=== PATIENT | female | born 1960 | race Caucasian/White ===

== ENCOUNTER 2021-06-23 17:12 | Emergency (ER) | payer OTHER ==
[~2021-06-23] VITALS: Ht 165.1 cm; Wt 118.4 kg
[2021-06-23 17:26] VITALS: BP_SYST 186
[2021-06-23] MEDS ORDERED: LABETALOL 100 MG/ 20ML VIAL IVP ONE ×2 (17:30→18:00)
--- NOTE | 2021-06-23 17:30 | NUR ---
RECEIVED PATIENT TO BED #7 FROM HOME WITH CC OF CHEST PRESSURE, NON-RADIATING, NONPROVOKED, HEADACHE ASSOCIATED THAT HAS BEEN X2 WEEKS. PT IS STABLE, BLOOD PRESSURE HIGH, TO BE FURTHER ASSESSED BY ED MD.
--- NOTE | 2021-06-23 17:40 | NUR ---
Dr. Lam at bedside examining pt.
[2021-06-23 18:15] LABS: BASOPHILS # (AUTO) 0.1 K/uL (0.0-0.2); BASOPHILS % (AUTO) 0.9 % (0.0-2.0); EOSINOPHILS # (AUTO) 0.2 K/uL (0.0-0.4); EOSINOPHILS % (AUTO) 2.9 % (0.0-4.0); HEMATOCRIT 43.7 % (36-48); LYMPHOCYTES # (AUTO) 2.2 K/uL (1.0-5.5); LYMPHOCYTES % (AUTO) 31.9 % (20.5-51.5); MEAN CORPUSCULAR HEMOGLOBIN 31 pg (27-31); MEAN CORPUSCULAR HGB CONC 34 % (32-36); MEAN CORPUSCULAR VOLUME 89 fL (79.0-98.0); MONOCYTES # (AUTO) 0.5 K/uL (0.0-1.0); MONOCYTES % (AUTO) 7.1 % (1.7-9.3); NEUTROPHILS # (AUTO) 3.9 K/uL (1.8-7.7); NEUTROPHILS % (AUTO) 57.2 % (40.0-70.0); PLATELET COUNT (AUTO) 197 K/uL (130-430); RED CELL DISTRIBUTION WIDTH 14.1 % (9.0-15.0); WHITE BLOOD COUNT (AUTO) 6.9 K/uL (4.8-10.8)
[2021-06-23 18:22] LABS: ANION GAP 12 (5-15); CALCIUM 9.2 mg/dL (8.4-11.0); CHLORIDE 103 mmol/L (98-107); CREATININE 0.73 mg/dL (0.55-1.30); GLUCOSE 87 mg/dL (70-99); POTASSIUM 3.4 mmol/L (3.5-5.1); SODIUM SERUM 139 mmol/L (136-145); UREA NITROGEN, BLOOD 12 mg/dL (8-21)
[2021-06-23 18:30] LABS: ALANINE AMINOTRANSFERASE 57 U/L (12-78); ALBUMIN 3.6 g/dL (3.4-4.8); ASPARTATE AMINOTRANSFERASE 38 U/L (10-37); TOTAL BILIRUBIN 0.2 mg/dL (0.0-1.0)
[2021-06-23 18:31] LABS: GFR AFRICAN AMERICAN 105 mL/min (>90)
--- NOTE | 2021-06-23 18:40 | NUR ---
Pt states she has no more chest pain and states she feeks better. BP improved to 146/77 and other vitals are stable as well.
--- NOTE | 2021-06-23 19:20 | NUR ---
Received report at this time. Pt on monitor with multiple family members present.
--- NOTE | 2021-06-23 19:22 | NUR ---
Report given to Lito MICHELLE.
[2021-06-23 20:45] VITALS: BP_SYST 113
--- NOTE | 2021-06-23 20:58 | NUR ---
Patient given written and verbal discharge instructions and verbalizes understanding. ER MD discussed with patient the results and treatment provided. Patient in stable condition. ID arm band removed. IV catheter removed intact and dressing applied, no active bleeding.Rx of given. Patient educated on pain management and to follow up with PMD.Opportunity for questions provided and answered. Pt states she has 20mg lisinopril medication at home and will take medicine as prescribed.
== END 2021-06-23 20:58 | disposition home or self-care (01) ==
LOC: SED 17:12
DX: R07.89 Other chest pain (principal); I16.0 Hypertensive urgency; G44.209 Tension-type headache, unspecified, not intractable; K21.9 Gastro-esophageal reflux disease without esophagitis
CPT/HCPCS: 36415; 71045; 80053; 82550; 83880; 84484; 85025; 85379; 93005; 96374; 99285; J3490